=== PATIENT | male | born 1950 | race Asian ===

== ENCOUNTER 2016-05-25 17:40 | Inpatient (IN) | payer MEDICARE, OTHER ==
[~2016-05-25] VITALS: Ht 167.6 cm; Wt 74.4 kg
[~2016-05-25 17:40] MED LIST: AMLODIPINE BES2.5 MG ORAL; ATENOLOL25 MG ORAL; DIOVAN80 MG ORAL
[2016-05-25 18:23] LABS: BASOPHILS % (AUTO) 1.1 % (0.0-2.0); EOSINOPHILS % (AUTO) 0.8 % (0.0-3.0); LYMPHOCYTES % (AUTO) 23.8 % (20.0-45.0); MEAN CORPUSCULAR HEMOGLOBIN 28.8 PG (27.0-31.0); MEAN CORPUSCULAR HGB CONC 31.4 G/DL (32.0-36.0); MEAN CORPUSCULAR VOLUME 92 FL (80-99); MEAN PLATELET VOLUME 7.7 FL (6.5-10.1); MONOCYTES % (AUTO) 9.5 % (1.0-10.0); NEUTROPHILS % (AUTO) 64.8 % (45.0-75.0); PLATELET COUNT 291 K/UL (150-450); RED BLOOD COUNT 3.95 M/UL (4.70-6.10); RED CELL DISTRIBUTION WIDTH 11.6 % (11.6-14.8)
[2016-05-25 18:40] LABS: ALBUMIN/GLOBULIN RATIO 1.2 (1.0-2.7); CALCIUM 8.7 mg/dL (8.6-10.2); CREATININE 1.8 mg/dL (0.7-1.2); GLOMERULAR FILTRATION RATE 37.8 mL/min (>60); POTASSIUM 3.1 mEQ/L (3.4-4.9); TOTAL PROTEIN 6.7 g/dL (6.6-8.7)
[2016-05-25 18:45] LABS: TROPONIN I 1.03 ng/mL (<=0.30)
[2016-05-25 18:50] LABS: CKMB 2.1 ng/mL (< 6.7)
[2016-05-25 19:23] VITALS: BP 116/77
[2016-05-25] MEDS ORDERED: Heparin 25,000u/D5W 500ml 500 ML IV SCH ×3 (19:30→22:00)
[2016-05-25] MEDS ORDERED: Heparin 5000 units/ml inj IV ONE (19:30)
--- NOTE | 2016-05-25 19:36 | Emergency Room Report ---
History of Present Illness General Chief Complaint: Chest Pain Source: Patient, EMS Present Illness HPI 65 YOM with substernal 8/10 chest pain, non -radiating without nausea/vomiting/ diaphoresis. Occurred at rest. Was given SL nitro, ASA by EMS with resolution of pain. No previous AMI or CVA. Allergies: Coded Allergies: No Known Allergies (Unverified , 05/25/16) Patient History Past Medical History: DM, HTN, other - HLD Past Surgical History: none Pertinent Family History: none Social History: Denies: alcohol use, drug use, smoking Immunizations: UTD Reviewed Nursing Documentation: PMH: Agreed, PSxH: Agreed Nursing Documentation-PMH Hx Hypertension: Yes Hx Diabetes: Yes Review of Systems All Other Systems: negative except mentioned in HPI Physical Exam Vital Signs Date Time Temp Pulse Resp B/P Pulse Ox O2 Delivery O2 Flow Rate FiO2 05/25/16 17:36 85 18 127/86 98 Room Air 05/25/16 19:23 97.8 Sp02 EP Interpretation: reviewed, normal General Appearance: normal inspection, well appearing, no apparent distress, alert, GCS 15, non-toxic Head: normocephalic, atraumatic Eyes: bilateral eye EOMI, bilateral eye PERRL ENT: normal ENT inspection, hearing grossly normal, normal voice Neck: normal inspection, full range of motion, supple, no bony tend Respiratory: normal inspection, lungs clear, normal breath sounds, no respiratory distress, no retraction, no wheezing Cardiovascular #1: regular rate, rhythm, no edema Gastrointestinal: normal inspection, normal bowel sounds, non tender, soft, no guarding, no hernia Genitourinary: no CVA tenderness Musculoskeletal: normal inspection, back normal, normal range of motion, Tony' s Sign negative Neurologic: normal inspection, alert, oriented x3, responsive, patient accounts manager III-XII nml as tested, motor strength/tone normal, speech normal Psychiatric: normal inspection, judgement/insight normal, mood/affect normal Skin: normal inspection, normal color, no rash Medical Decision Making Medicare Attestation I Evelyn Zurita MD hereby attest that the medical record entry for date of service, 02/29/16 accurately reflects signatures/notations that I made in my capacity as MD when I treated/diagnosed the above listed Medicare beneficiary. I attest that this information is true, accurate and complete to the best of my knowledge. I understand that any falsification, omission, or concealment of material fact may subject me to administrative, civil, or criminal liability. This patient warrants hospital admission for extreme of age and has a condition that cannot be treated as outpatient. Diagnostic Impression: Primary Impression: NSTEMI (non-ST elevated myocardial infarction) Additional Impression: Chest pain Qualified Codes: R07.9 - Chest pain, unspecified ER Course ECG ST depressions in V-6, 2,3, AVF. Elevated troponin 1 CXR no widened mediastinum, PTX Called [facility] for possible transfer/Cardiology and they wouldnt accept because food stand manager said "He's not having a STEMI, consult your willower." Spoke to Dr Romo, strongly recommends transfer to tin can laborer. Recommended Heparin, Statin, beta-divine, full dose ASA, which were given in ED [facility] transfer center contacted at 730pm - pending response but was alerted they have no beds. Endorsed to Dr Polk at 828pm for ICU admission for NSTEMI patient remains asymptomatic in ED EKG Diagnostic Results Rate: normal Rhythm: NSR ST Segments: other - ST depressions in ifnerior and lateral leads ASA given to the pt in ED: Yes Rhythm Strip Diag. Results EP Interpretation: yes Rate: 80 Rhythm: other - LVH Chest X-Ray Diagnostic Results EP Interpretation: Yes Findings: no consolidation, no effusion, no pneumothorax, no acute cardiopulmonary disease Number of Views: 1 Last Vital Signs Date Time Temp Pulse Resp B/P Pulse Ox O2 Delivery O2 Flow Rate FiO2 05/25/16 19:23 97.8 74 21 116/77 99 Room Air Status: improved Disposition: ADMITTED INPATIENT Condition: Critical Referrals: NON PHYSICIAN (PCP) EVELYN ZURITA M.D. May 25, 2016 19:36
[2016-05-25] MEDS ORDERED: Metoprolol Tartrate 12.5mg TAB ORAL ONE (19:45)
[2016-05-25] MEDS ORDERED: Aspirin Baby 81mg ORAL ONE (19:45)
[2016-05-25 21:00] VITALS: BP 116/77
[2016-05-25 21:18] VITALS: BP 120/68
[2016-05-25 21:25] VITALS: BP 120/68
[2016-05-25 22:00] VITALS: BP 115/65
[2016-05-25] MEDS ORDERED: Enalaprilat 2.5mg/2ml Inj IV PRN (22:00)
[2016-05-25] MEDS ORDERED: Ketorolac 30mg Inj IV PRN (22:00)
[2016-05-25] MEDS ORDERED: Diltiazem 25mg/5ml IV PRN (22:00)
[2016-05-25] MEDS ORDERED: DuoNeb 0.5-3(2.5)mg/3ml neb HHN PRN (22:00)
[2016-05-25] MEDS ORDERED: Miralax 17gm pkt ORAL PRN (22:00)
[2016-05-25 23:00] VITALS: BP 111/65
[2016-05-25 23:47] LABS: APPEARANCE,URINE CLEAR; KETONES,URINE NEGATIVE (NEGATIVE); LEUKOCYTE ESTERASE ,URINE NEGATIVE (NEGATIVE); NITRITE,URINE NEGATIVE (NEGATIVE); PH,URINE 6 (4.5-8.0); PROTEIN,URINE 2+ (NEGATIVE); UROBILINOGEN,URINE NORMAL MG/DL (0.0-1.0)
[2016-05-25 23:53] LABS: BACTERIA,URINE FEW /HPF; RBC,URINE 0-2 /HPF (0 - 0); WBC,URINE 0 /HPF (0 - 0)
[2016-05-25] MEDS: Morphine Sulfate 2mg/ml Inj IVP PRN (23:53)
[2016-05-25] MEDS: Nitroglycerin Subl 0.4mg tab (Bottle Of 25) SL PRN (23:54)
[2016-05-26] VITALS (14 sets, daily range): BP systolic 93–124; BP diastolic 54–85
[2016-05-26 02:20] LABS: BASOPHILS % (AUTO) 0.9 % (0.0-2.0); EOSINOPHILS % (AUTO) 0.3 % (0.0-3.0); LYMPHOCYTES % (AUTO) 16.6 % (20.0-45.0); MEAN CORPUSCULAR HEMOGLOBIN 29.3 PG (27.0-31.0); MEAN CORPUSCULAR HGB CONC 33.1 G/DL (32.0-36.0); MEAN CORPUSCULAR VOLUME 88 FL (80-99); MEAN PLATELET VOLUME 8.1 FL (6.5-10.1); MONOCYTES % (AUTO) 7.5 % (1.0-10.0); NEUTROPHILS % (AUTO) 74.7 % (45.0-75.0); PLATELET COUNT 313 K/UL (150-450); RED BLOOD COUNT 4.11 M/UL (4.70-6.10); RED CELL DISTRIBUTION WIDTH 11.9 % (11.6-14.8); WHITE BLOOD COUNT 13.3 K/UL (4.8-10.8)
[2016-05-26 02:34] LABS: INR 1.1 (0.9-1.1)
[2016-05-26 02:41] LABS: ALANINE AMINOTRANSFERASE 20 U/L (3-41); ALBUMIN/GLOBULIN RATIO 1.2 (1.0-2.7); ANION GAP 16 (5-15); ASPARTATE AMINO TRANSFERASE 28 U/L (5-40); CALCIUM 8.4 mg/dL (8.6-10.2); CARBON DIOXIDE 22 mEQ/L (20-30); CHLORIDE 101 mEQ/L (98-107); CHOLESTEROL 160 mg/dL (< 200); CHOLESTEROL/HDL RATIO 4.3 (3.3-4.4); CREATININE 1.8 mg/dL (0.7-1.2); GLOMERULAR FILTRATION RATE 37.8 mL/min (>60); HEMOLYSIS 3; LDL CHOLESTEROL (CALC.) 89 mg/dL (60-99); MAGNESIUM 1.8 mg/dL (1.7-2.5); PHOSPHORUS 3.8 mg/dL (2.5-4.8); POTASSIUM 3.3 mEQ/L (3.4-4.9); SODIUM 139 mEQ/L (135-145); TOTAL PROTEIN 6.2 g/dL (6.6-8.7); URIC ACID 6.8 mg/dL (3.0-7.5)
[2016-05-26] MEDS ORDERED: Heparin 5000 units/ml inj IV ONE ×2 (03:00→11:00)
[2016-05-26] MEDS: Heparin 25,000u/D5W 500ml 500 ML IV SCH ×2 (03:08→11:07)
[2016-05-26 03:35] LABS: TROPONIN I 1.48 ng/mL (<=0.30)
[2016-05-26] MEDS: Nitroglycerin 2% oint pkt TOPIC SCH ×2 (06:02→12:01)
--- NOTE | 2016-05-26 07:06 | Cardiology Progress Note ---
Assessment/Plan Assessment/Plan nstemi know 3 v cad (declined cabg 3 year ago) dm htn hyperlipidmiia renal insuf (chronic ) hemorrids with bleeding afew week ago hypokalemia i was called agin by staff re trop ekg reviwed some improvement in st but still present iv heparin statin ecotirn bedrest ntp prn sl ntg bb echo serial enzyme needs to be transferred to cath facility for higer level of care echo Subjective Cardiovascular: Denies: chest pain - did have soen mearlier biut no now , irregular heart rate, lightheadedness Respiratory: Denies: shortness of breath Gastrointestinal/Abdominal: Denies: abdominal pain Genitourinary: Denies: burning Objective Last 24 Hour Vital Signs Date Time Temp Pulse Resp B/P Pulse Ox O2 Delivery O2 Flow Rate FiO2 05/26/16 06:02 107/70 05/26/16 06:00 71 20 107/70 98 Nasal Cannula 4.0 05/26/16 05:00 58 13 93/54 90 Nasal Cannula 4.0 05/26/16 04:00 97.8 66 18 108/66 94 Nasal Cannula 4.0 05/26/16 04:00 66 05/26/16 03:00 71 17 103/65 92 Nasal Cannula 4.0 05/26/16 02:00 67 19 102/63 92 Nasal Cannula 4.0 05/26/16 01:00 65 17 102/61 92 Nasal Cannula 4.0 05/26/16 00:42 97.7 05/26/16 00:34 20 95 Nasal Cannula 2.0 05/26/16 00:00 97.7 70 18 108/67 94 Nasal Cannula 4.0 05/26/16 00:00 70 05/25/16 23:54 111/65 05/25/16 23:45 99 Nasal Cannula 2.0 28 05/25/16 23:45 Nasal Cannula 2.0 28 05/25/16 23:45 73 16 Nasal Cannula 2.0 28 05/25/16 23:36 97.5 05/25/16 23:00 77 21 111/65 96 Nasal Cannula 2.0 05/25/16 22:00 97.5 77 23 115/65 95 Nasal Cannula 2.0 05/25/16 21:25 97.7 74 20 120/68 99 Room Air 05/25/16 21:23 97.7 74 20 120/68 99 Room Air 05/25/16 21:19 74 20 Room Air 05/25/16 21:18 97.7 74 20 120/68 99 Room Air 05/25/16 21:08 77 122/68 05/25/16 21:00 74 05/25/16 21:00 97.8 74 21 116/77 99 Room Air 05/25/16 19:23 97.8 74 21 116/77 99 Room Air 05/25/16 17:36 85 18 127/86 98 Room Air General Appearance: no apparent distress, alert Neck: no JVD Cardiovascular: normal rate, regular rhythm Respiratory/Chest: lungs clear, normal breath sounds Abdomen: normal bowel sounds, non tender, soft Extremities: no swelling Intake and Output 05/25/16 05/26/16 19:00 07:00 Intake Total 497.584 ml Output Total 600 ml Balance -102.416 ml Intake Oral 300 ml IV Total 197.584 ml Output Urine Total 600 ml # Voids 2 Laboratory Tests Test 05/25/16 18:00 05/25/16 18:06 05/25/16 22:20 05/25/16 22:22 Activated Partial Thromboplast Time 24 SEC (23-33) White Blood Count 9.0 K/UL (4.8-10.8) Red Blood Count 3.95 M/UL (4.70-6.10) L Hemoglobin 11.4 G/DL (14.2-18.0) L Hematocrit 36.2 % (42.0-52.0) L Mean Corpuscular Volume 92 FL (80-99) Mean Corpuscular Hemoglobin 28.8 PG (27.0-31.0) Mean Corpuscular Hemoglobin Concent 31.4 G/DL (32.0-36.0) L Red Cell Distribution Width 11.6 % (11.6-14.8) Platelet Count 291 K/UL (150-450) Mean Platelet Volume 7.7 FL (6.5-10.1) Neutrophils (%) (Auto) 64.8 % (45.0-75.0) Lymphocytes (%) (Auto) 23.8 % (20.0-45.0) Monocytes (%) (Auto) 9.5 % (1.0-10.0) Eosinophils (%) (Auto) 0.8 % (0.0-3.0) Basophils (%) (Auto) 1.1 % (0.0-2.0) Sodium Level 139 mEQ/L (135-145) Potassium Level 3.1 mEQ/L (3.4-4.9) L Chloride Level 99 mEQ/L (98-107) Carbon Dioxide Level 22 mEQ/L (20-30) Anion Gap 18 (5-15) H Blood Urea Nitrogen 28 mg/dL (7-23) H Creatinine 1.8 mg/dL (0.7-1.2) H Estimat Glomerular Filtration Rate 37.8 mL/min (>60) Glucose Level 168 mg/dL (74-106) H Calcium Level 8.7 mg/dL (8.6-10.2) Total Bilirubin 0.3 mg/dL (0.0-1.2) Aspartate Amino Transf (AST/SGOT) 23 U/L (5-40) Alanine Aminotransferase (ALT/SGPT) 21 U/L (3-41) Alkaline Phosphatase 36 U/L (40-129) L Total Creatine Kinase 79 U/L (38-174) Creatine Kinase MB 2.1 ng/mL (< 6.7) Creatine Kinase MB Relative Index 2.6 Troponin I 1.03 ng/mL (<=0.30) *H Total Protein 6.7 g/dL (6.6-8.7) Albumin 3.7 g/dL (3.5-5.2) Globulin 3.0 g/dL Albumin/Globulin Ratio 1.2 (1.0-2.7) Urine Random Sodium 102 mmol/L Urine Random Chloride 94 mmol/L Urine Potassium Timed 16 mmol/L Urine Color Pale yellow Urine Appearance Clear Urine pH 6 (4.5-8.0) Urine Specific [place] 1.010 (1.005-1.035) Urine Protein 2+ (NEGATIVE) H Urine Glucose (UA) Negative (NEGATIVE) Urine Ketones Negative (NEGATIVE) Urine Occult Blood Negative (NEGATIVE) Urine Nitrite Negative (NEGATIVE) Urine Bilirubin Negative (NEGATIVE) Urine Urobilinogen Normal MG/DL (0.0-1.0) Urine Leukocyte Esterase Negative (NEGATIVE) Urine RBC 0-2 /HPF (0 - 0) H Urine WBC 0 /HPF (0 - 0) Urine Squamous Epithelial Cells None /LPF (NONE/OCC) Urine Bacteria Few /HPF (NONE) Urine Eosinophils None seen Test 05/26/16 01:47 White Blood Count 13.3 K/UL (4.8-10.8) H Red Blood Count 4.11 M/UL (4.70-6.10) L Hemoglobin 12.0 G/DL (14.2-18.0) L Hematocrit 36.3 % (42.0-52.0) L Mean Corpuscular Volume 88 FL (80-99) Mean Corpuscular Hemoglobin 29.3 PG (27.0-31.0) Mean Corpuscular Hemoglobin Concent 33.1 G/DL (32.0-36.0) Red Cell Distribution Width 11.9 % (11.6-14.8) Platelet Count 313 K/UL (150-450) Mean Platelet Volume 8.1 FL (6.5-10.1) Neutrophils (%) (Auto) 74.7 % (45.0-75.0) Lymphocytes (%) (Auto) 16.6 % (20.0-45.0) L Monocytes (%) (Auto) 7.5 % (1.0-10.0) Eosinophils (%) (Auto) 0.3 % (0.0-3.0) Basophils (%) (Auto) 0.9 % (0.0-2.0) Prothrombin Time 11.0 SEC (9.30-11.50) Prothromb Time International Ratio 1.1 (0.9-1.1) Activated Partial Thromboplast Time 38 SEC (23-33) H Sodium Level 139 mEQ/L (135-145) Potassium Level 3.3 mEQ/L (3.4-4.9) L Chloride Level 101 mEQ/L (98-107) Carbon Dioxide Level 22 mEQ/L (20-30) Anion Gap 16 (5-15) H Blood Urea Nitrogen 29 mg/dL (7-23) H Creatinine 1.8 mg/dL (0.7-1.2) H Estimat Glomerular Filtration Rate 37.8 mL/min (>60) Glucose Level 140 mg/dL (74-106) H Uric Acid 6.8 mg/dL (3.0-7.5) Calcium Level 8.4 mg/dL (8.6-10.2) L Phosphorus Level 3.8 mg/dL (2.5-4.8) Magnesium Level 1.8 mg/dL (1.7-2.5) Total Bilirubin 0.4 mg/dL (0.0-1.2) Aspartate Amino Transf (AST/SGOT) 28 U/L (5-40) Alanine Aminotransferase (ALT/SGPT) 20 U/L (3-41) Alkaline Phosphatase 31 U/L (40-129) L Total Creatine Kinase 155 U/L (38-174) Troponin I 1.48 ng/mL (<=0.30) *H C-Reactive Protein, Quantitative < 0.3 mg/dL (< 0.5) Total Protein 6.2 g/dL (6.6-8.7) L Albumin 3.4 g/dL (3.5-5.2) L Globulin 2.8 g/dL Albumin/Globulin Ratio 1.2 (1.0-2.7) Triglycerides Level 172 mg/dL (< 150) H Cholesterol Level 160 mg/dL (< 200) LDL Cholesterol 89 mg/dL (60-99) HDL Cholesterol 37 mg/dL (> 60) Cholesterol/HDL Ratio 4.3 (3.3-4.4) Thyroid Stimulating Hormone (TSH) 4.120 uIU/mL (0.300-4.500) ДМИТРИЙ TAYLOR 2, 2017 07:06
[2016-05-26] MEDS: Nitroglycerin Subl 0.4mg tab (Bottle Of 25) SL PRN ×2 (08:14→11:52)
[2016-05-26] MEDS ORDERED: Aspirin Baby 81mg ORAL SCH (09:00)
[2016-05-26] MEDS ORDERED: Atenolol 25mg tab ORAL SCH (09:00)
--- NOTE | 2016-05-26 09:58 | History and Physical ---
History of Present Illness General Date patient seen: May 26, 2016 Time patient seen: 09:58 Reason for Hospitalization: Chest Pain Present Illness HPI 65yo male with pmh of CAD (known 3vCAD but refused CABG in past), DM2, HTN, HLD , CKD who presented with substernal 8/10 chest pain, non -radiating without nausea/vomiting/diaphoresis. Occurred at rest. Was given SL nitro, ASA by EMS with improvement of pain. In ED, pt found to have NSTEMI w/ elevated troponin to 1.03. ED physician spoke to cardiology, Dr Romo, strongly recommends transfer to sugar laboratory assistant. Heparin gtt started, as well as statin, beta divine. [facility] transfer center contacted at 730pm - pending response but was alerted they have no beds.Pt then admitted to ICU. Allergies: Coded Allergies: No Known Allergies (Unverified , 05/25/16) Medication History Scheduled Amlodipine Besylate* (Amlodipine Besylate*), 2.5 MG ORAL DAILY, (Reported) Atenolol* (Tenormin*), 25 MG ORAL DAILY, (Reported) Valsartan (Diovan), 80 MG ORAL DAILY, (Reported) Patient History History Provided By: Patient, Family Member, EMS Healthcare decision maker shea Duong Resuscitation status Full Code Advanced Directive on File No Past Medical/Surgical History Past Medical/Surgical History: (1) CAD (coronary artery disease) (2) HTN (hypertension) (3) HLD (hyperlipidemia) (4) CKD (chronic kidney disease) (5) DM2 (diabetes mellitus, type 2) Family History Family History: Patient reports no known family medical history. Social History Social History: (1) No significant social history Review of Systems ROS Narrative CONSTITUTIONAL: No weight loss, fever, chills, weakness or fatigue. HEENT: Eyes: No visual loss, blurred vision, double vision or yellow sclerae. Ears, Nose, Throat: No hearing loss, sneezing, congestion, runny nose or sore throat. SKIN: No rash or itching. CARDIOVASCULAR: +chest pain, chest pressure or chest discomfort. No palpitations or edema. RESPIRATORY: +shortness of breath, no cough or sputum. GASTROINTESTINAL: No anorexia, nausea, vomiting or diarrhea. No abdominal pain or blood. NEUROLOGICAL: No headache, dizziness, syncope, paralysis, ataxia, numbness or tingling in the extremities. No change in bowel or bladder control. MUSCULOSKELETAL: No muscle, back pain, joint pain or stiffness. HEMATOLOGIC: No anemia, bleeding or bruising. LYMPHATICS: No enlarged nodes. No history of splenectomy. PSYCHIATRIC: No history of depression or anxiety. ENDOCRINOLOGIC: No reports of sweating, cold or heat intolerance. No polyuria or polydipsia. ALLERGIES: No history of asthma, hives, eczema or rhinitis. Physical Exam Physical Exam Narrative General: alert, cooperative, no distress, appears stated age Head: normocephalic, without obvious abnormality, atraumatic Eyes: conjunctivae/corneas clear. PERRL, EOM's intact Throat: lips, mucosa, and tongue normal. MMM Neck: supple, symmetrical, trachea midline, and no JVD Lungs: clear to auscultation bilaterally Heart: regular rate and rhythm, S1, S2 normal, no murmur, click, rub or gallop Abdomen: soft, non-tender, non-distended, bowel sounds normal; no masses or organomegaly Extremities: extremities normal, atraumatic, no cyanosis or edema Pulses: 2+ and symmetric Skin: skin color, texture, turgor normal; no rashes or lesions Neurologic: grossly normal, no focal deficits Last 24 Hour Vital Signs Date Time Temp Pulse Resp B/P Pulse Ox O2 Delivery O2 Flow Rate FiO2 05/26/16 09:33 96 124/75 05/26/16 09:00 97.8 102 25 124/75 93 Nasal Cannula 4.0 05/26/16 08:14 113/73 05/26/16 08:06 104 25 Nasal Cannula 3.0 32 05/26/16 08:06 104 25 95 Nasal Cannula 3.0 32 05/26/16 08:06 36 05/26/16 08:00 96 22 113/73 92 Nasal Cannula 4.0 05/26/16 07:00 82 15 114/67 95 Nasal Cannula 4.0 05/26/16 06:55 79 16 Nasal Cannula 2.0 28 05/26/16 06:55 Nasal Cannula 2.0 28 05/26/16 06:55 94 Nasal Cannula 2.0 28 05/26/16 06:02 107/70 05/26/16 06:00 71 20 107/70 98 Nasal Cannula 4.0 05/26/16 05:00 58 13 93/54 90 Nasal Cannula 4.0 05/26/16 04:00 97.8 66 18 108/66 94 Nasal Cannula 4.0 05/26/16 04:00 66 05/26/16 03:00 71 17 103/65 92 Nasal Cannula 4.0 05/26/16 02:00 67 19 102/63 92 Nasal Cannula 4.0 05/26/16 01:00 65 17 102/61 92 Nasal Cannula 4.0 05/26/16 00:42 97.7 05/26/16 00:34 20 95 Nasal Cannula 2.0 05/26/16 00:00 97.7 70 18 108/67 94 Nasal Cannula 4.0 05/26/16 00:00 70 05/25/16 23:54 111/65 05/25/16 23:45 99 Nasal Cannula 2.0 28 05/25/16 23:45 Nasal Cannula 2.0 28 05/25/16 23:45 73 16 Nasal Cannula 2.0 28 05/25/16 23:36 97.5 05/25/16 23:00 77 21 111/65 96 Nasal Cannula 2.0 05/25/16 22:00 97.5 77 23 115/65 95 Nasal Cannula 2.0 05/25/16 21:25 97.7 74 20 120/68 99 Room Air 05/25/16 21:23 97.7 74 20 120/68 99 Room Air 05/25/16 21:19 74 20 Room Air 05/25/16 21:18 97.7 74 20 120/68 99 Room Air 05/25/16 21:08 77 122/68 05/25/16 21:00 74 05/25/16 21:00 97.8 74 21 116/77 99 Room Air 05/25/16 19:23 97.8 74 21 116/77 99 Room Air 05/25/16 17:36 85 18 127/86 98 Room Air Intake and Output 05/25/16 05/26/16 19:00 07:00 Intake Total 521.534 ml Output Total 600 ml Balance -78.466 ml Intake Oral 300 ml IV Total 221.534 ml Output Urine Total 600 ml # Voids 2 Laboratory Tests Test 05/25/16 18:00 05/25/16 18:06 05/25/16 22:20 05/25/16 22:22 Activated Partial Thromboplast Time 24 SEC (23-33) White Blood Count 9.0 K/UL (4.8-10.8) Red Blood Count 3.95 M/UL (4.70-6.10) L Hemoglobin 11.4 G/DL (14.2-18.0) L Hematocrit 36.2 % (42.0-52.0) L Mean Corpuscular Volume 92 FL (80-99) Mean Corpuscular Hemoglobin 28.8 PG (27.0-31.0) Mean Corpuscular Hemoglobin Concent 31.4 G/DL (32.0-36.0) L Red Cell Distribution Width 11.6 % (11.6-14.8) Platelet Count 291 K/UL (150-450) Mean Platelet Volume 7.7 FL (6.5-10.1) Neutrophils (%) (Auto) 64.8 % (45.0-75.0) Lymphocytes (%) (Auto) 23.8 % (20.0-45.0) Monocytes (%) (Auto) 9.5 % (1.0-10.0) Eosinophils (%) (Auto) 0.8 % (0.0-3.0) Basophils (%) (Auto) 1.1 % (0.0-2.0) Sodium Level 139 mEQ/L (135-145) Potassium Level 3.1 mEQ/L (3.4-4.9) L Chloride Level 99 mEQ/L (98-107) Carbon Dioxide Level 22 mEQ/L (20-30) Anion Gap 18 (5-15) H Blood Urea Nitrogen 28 mg/dL (7-23) H Creatinine 1.8 mg/dL (0.7-1.2) H Estimat Glomerular Filtration Rate 37.8 mL/min (>60) Glucose Level 168 mg/dL (74-106) H Calcium Level 8.7 mg/dL (8.6-10.2) Total Bilirubin 0.3 mg/dL (0.0-1.2) Aspartate Amino Transf (AST/SGOT) 23 U/L (5-40) Alanine Aminotransferase (ALT/SGPT) 21 U/L (3-41) Alkaline Phosphatase 36 U/L (40-129) L Total Creatine Kinase 79 U/L (38-174) Creatine Kinase MB 2.1 ng/mL (< 6.7) Creatine Kinase MB Relative Index 2.6 Troponin I 1.03 ng/mL (<=0.30) *H Total Protein 6.7 g/dL (6.6-8.7) Albumin 3.7 g/dL (3.5-5.2) Globulin 3.0 g/dL Albumin/Globulin Ratio 1.2 (1.0-2.7) Urine Random Sodium 102 mmol/L Urine Random Chloride 94 mmol/L Urine Potassium Timed 16 mmol/L Urine Color Pale yellow Urine Appearance Clear Urine pH 6 (4.5-8.0) Urine Specific [place] 1.010 (1.005-1.035) Urine Protein 2+ (NEGATIVE) H Urine Glucose (UA) Negative (NEGATIVE) Urine Ketones Negative (NEGATIVE) Urine Occult Blood Negative (NEGATIVE) Urine Nitrite Negative (NEGATIVE) Urine Bilirubin Negative (NEGATIVE) Urine Urobilinogen Normal MG/DL (0.0-1.0) Urine Leukocyte Esterase Negative (NEGATIVE) Urine RBC 0-2 /HPF (0 - 0) H Urine WBC 0 /HPF (0 - 0) Urine Squamous Epithelial Cells None /LPF (NONE/OCC) Urine Bacteria Few /HPF (NONE) Urine Eosinophils None seen Test 05/26/16 01:47 05/26/16 09:05 White Blood Count 13.3 K/UL (4.8-10.8) H Red Blood Count 4.11 M/UL (4.70-6.10) L Hemoglobin 12.0 G/DL (14.2-18.0) L Hematocrit 36.3 % (42.0-52.0) L Mean Corpuscular Volume 88 FL (80-99) Mean Corpuscular Hemoglobin 29.3 PG (27.0-31.0) Mean Corpuscular Hemoglobin Concent 33.1 G/DL (32.0-36.0) Red Cell Distribution Width 11.9 % (11.6-14.8) Platelet Count 313 K/UL (150-450) Mean Platelet Volume 8.1 FL (6.5-10.1) Neutrophils (%) (Auto) 74.7 % (45.0-75.0) Lymphocytes (%) (Auto) 16.6 % (20.0-45.0) L Monocytes (%) (Auto) 7.5 % (1.0-10.0) Eosinophils (%) (Auto) 0.3 % (0.0-3.0) Basophils (%) (Auto) 0.9 % (0.0-2.0) Prothrombin Time 11.0 SEC (9.30-11.50) Prothromb Time International Ratio 1.1 (0.9-1.1) Activated Partial Thromboplast Time 38 SEC (23-33) H Pending Sodium Level 139 mEQ/L (135-145) Potassium Level 3.3 mEQ/L (3.4-4.9) L Chloride Level 101 mEQ/L (98-107) Carbon Dioxide Level 22 mEQ/L (20-30) Anion Gap 16 (5-15) H Blood Urea Nitrogen 29 mg/dL (7-23) H Creatinine 1.8 mg/dL (0.7-1.2) H Estimat Glomerular Filtration Rate 37.8 mL/min (>60) Glucose Level 140 mg/dL (74-106) H Uric Acid 6.8 mg/dL (3.0-7.5) Calcium Level 8.4 mg/dL (8.6-10.2) L Phosphorus Level 3.8 mg/dL (2.5-4.8) Magnesium Level 1.8 mg/dL (1.7-2.5) Total Bilirubin 0.4 mg/dL (0.0-1.2) Aspartate Amino Transf (AST/SGOT) 28 U/L (5-40) Alanine Aminotransferase (ALT/SGPT) 20 U/L (3-41) Alkaline Phosphatase 31 U/L (40-129) L Total Creatine Kinase 155 U/L (38-174) Troponin I 1.48 ng/mL (<=0.30) *H Pending C-Reactive Protein, Quantitative < 0.3 mg/dL (< 0.5) Total Protein 6.2 g/dL (6.6-8.7) L Albumin 3.4 g/dL (3.5-5.2) L Globulin 2.8 g/dL Albumin/Globulin Ratio 1.2 (1.0-2.7) Triglycerides Level 172 mg/dL (< 150) H Cholesterol Level 160 mg/dL (< 200) LDL Cholesterol 89 mg/dL (60-99) HDL Cholesterol 37 mg/dL (> 60) Cholesterol/HDL Ratio 4.3 (3.3-4.4) Thyroid Stimulating Hormone (TSH) 4.120 uIU/mL (0.300-4.500) Height (Feet): 5 Height (Inches): 6.00 Weight (Pounds): 164 Medications Current Medications Medications (Trade) Dose Ordered Sig/Adilia Route PRN Reason Start Time Stop Time Status Last Admin Dose Admin Acetaminophen (Tylenol) 650 mg Q4H PRN ORAL FEVER 05/25/16 22:00 06/24/16 21:59 Albuterol/ Ipratropium (DuoNeb 0.5-3(2.5)mg/3ml) 3 ml EVERY 4 HOURS PRN HHN Shortness of Breath 05/25/16 22:00 05/30/16 21:59 05/26/16 08:05 Aspirin (ASA) 162 mg DAILY ORAL 05/26/16 09:00 06/25/16 08:59 05/26/16 09:42 Atenolol (Tenormin) 25 mg DAILY ORAL 05/26/16 09:00 06/25/16 08:59 05/26/16 09:33 Atorvastatin Calcium (Lipitor) 80 mg BEDTIME ORAL 05/26/16 21:00 06/25/16 20:59 Diltiazem HCl 10 mg 10 mg EVERY HOUR PRN IV heart rate more than 120, 05/25/16 22:00 06/24/16 21:59 Enalaprilat (Vasotec) 2.5 mg EVERY 6 HOURS PRN IV sbp more than 160 05/25/16 22:00 06/24/16 21:59 Heparin Sodium/ Dextrose (Heparin) 500 ml @ 23.95 mls/ hr adjust per protocol IV 05/26/16 03:00 06/25/16 02:59 05/26/16 03:08 Morphine Sulfate (Morphine Sulfate) 2 mg EVERY 4 HOURS PRN IVP severe Pain (Pain Scale 7-10) 05/25/16 22:00 06/01/16 21:59 05/25/16 23:53 Nitroglycerin (Nitro-Bid) 0.5 inch EVERY 6 HOURS TOPIC 05/26/16 06:00 06/25/16 05:59 05/26/16 06:02 Nitroglycerin (Ntg) 0.4 mg Every 5 Minutes PRN SL Prn Chest Pain 05/25/16 22:00 06/24/16 21:59 05/26/16 08:14 Ondansetron HCl (Zofran) 4 mg Q6H PRN IVP Nausea & Vomiting 05/25/16 22:00 06/24/16 21:59 Pantoprazole (Protonix) 40 mg DAILY ORAL 05/26/16 09:00 06/25/16 08:59 05/26/16 09:34 Polyethylene Glycol (Miralax) 17 gm DAILYPRN PRN ORAL Constipation 05/25/16 22:00 06/24/16 21:59 Temazepam (Restoril) 15 mg HSPRN PRN ORAL Insomnia 05/25/16 22:00 06/01/16 21:59 Assessment/Plan Problem List: (1) NSTEMI (non-ST elevated myocardial infarction) ICD Codes: I21.4 - Non-ST elevation (NSTEMI) myocardial infarction SNOMED: 17062287 (2) Acute respiratory failure with hypoxia ICD Codes: J96.01 - Acute respiratory failure with hypoxia SNOMED: 99952658, 602766844 (3) CAD (coronary artery disease) ICD Codes: I25.10 - Atherosclerotic heart disease of [place] coronary artery without angina pectoris SNOMED: 88484964 (4) HTN (hypertension) ICD Codes: I10 - Essential (primary) hypertension SNOMED: 65961010 (5) HLD (hyperlipidemia) ICD Codes: E78.5 - Hyperlipidemia, unspecified SNOMED: 47377226 (6) CKD (chronic kidney disease) ICD Codes: N18.9 - Chronic kidney disease, unspecified SNOMED: 663921858 (7) DM2 (diabetes mellitus, type 2) ICD Codes: E11.9 - Type 2 diabetes mellitus without complications SNOMED: 49098536 Status: stable Assessment/Plan Admit to ICU Cont ASA, statin, beta-divine, heparin gtt Appreciate cardiology rec's--pt needs to be transferred to higher level for cardiac cath Trend trop/EKG Bed rest Titrate O2 to sats>92% Nitro SL PRN Check TTE Consider workup for PE give hypoxia such as V/Q scan. Cannot do CTA given elevated Cr FULL CODE Arelis Ceballos M.D. May 26, 2016 09:58
[2016-05-26 10:08] LABS: TROPONIN I 1.45 ng/mL (<=0.30)
[2016-05-26] MEDS: Morphine Sulfate 2mg/ml Inj IVP PRN (11:00)
--- NOTE | 2016-05-26 12:01 | Pulmonolgy Critical Care Note ---
Critical Care - Asmt/Plan Problems: (1) NSTEMI (non-ST elevated myocardial infarction) (2) DM2 (diabetes mellitus, type 2) (3) HTN (hypertension) Respiratory: monitor respiratory rate, adjust FIO2, CXR Cardiac: continue to monitor HR/BP, other - for transfer to [facility] Renal: F/U I&O, keep IV fluid, check electrolytes Infectious Disease: check cultures Endocrine: monitor blood sugar, check TSH, check HgA1C Neurologic: PRN Morphine Notes Reviewed: training associate, renal Discussed with: nurses, consultants, case resolution specialistcosmetics counter manager - Objective Last 24 Hour Vital Signs Date Time Temp Pulse Resp B/P Pulse Ox O2 Delivery O2 Flow Rate FiO2 05/26/16 11:18 Venturi Mask 14.0 55 05/26/16 11:00 87 24 120/85 92 Venturi Mask 55.0 05/26/16 10:00 96 20 123/83 90 Venturi Mask 55.0 05/26/16 09:33 96 124/75 05/26/16 09:00 97.8 102 25 124/75 93 Nasal Cannula 4.0 05/26/16 08:16 104 26 96 Nasal Cannula 3.0 32 05/26/16 08:14 113/73 05/26/16 08:06 104 25 Nasal Cannula 3.0 32 05/26/16 08:06 104 25 95 Nasal Cannula 3.0 32 05/26/16 08:06 36 05/26/16 08:00 96 22 113/73 92 Nasal Cannula 4.0 05/26/16 07:00 82 15 114/67 95 Nasal Cannula 4.0 05/26/16 06:55 79 16 Nasal Cannula 2.0 28 05/26/16 06:55 Nasal Cannula 2.0 28 05/26/16 06:55 94 Nasal Cannula 2.0 28 05/26/16 06:02 107/70 05/26/16 06:00 71 20 107/70 98 Nasal Cannula 4.0 05/26/16 05:00 58 13 93/54 90 Nasal Cannula 4.0 05/26/16 04:00 97.8 66 18 108/66 94 Nasal Cannula 4.0 05/26/16 04:00 66 05/26/16 03:00 71 17 103/65 92 Nasal Cannula 4.0 05/26/16 02:00 67 19 102/63 92 Nasal Cannula 4.0 05/26/16 01:00 65 17 102/61 92 Nasal Cannula 4.0 05/26/16 00:42 97.7 05/26/16 00:34 20 95 Nasal Cannula 2.0 05/26/16 00:00 97.7 70 18 108/67 94 Nasal Cannula 4.0 05/26/16 00:00 70 05/25/16 23:54 111/65 05/25/16 23:45 99 Nasal Cannula 2.0 28 05/25/16 23:45 Nasal Cannula 2.0 28 05/25/16 23:45 73 16 Nasal Cannula 2.0 28 05/25/16 23:36 97.5 05/25/16 23:00 77 21 111/65 96 Nasal Cannula 2.0 05/25/16 22:00 97.5 77 23 115/65 95 Nasal Cannula 2.0 05/25/16 21:25 97.7 74 20 120/68 99 Room Air 05/25/16 21:23 97.7 74 20 120/68 99 Room Air 05/25/16 21:19 74 20 Room Air 05/25/16 21:18 97.7 74 20 120/68 99 Room Air 05/25/16 21:08 77 122/68 05/25/16 21:00 74 05/25/16 21:00 97.8 74 21 116/77 99 Room Air 05/25/16 19:23 97.8 74 21 116/77 99 Room Air 05/25/16 17:36 85 18 127/86 98 Room Air Status: awake Condition: critical HEENT: atraumatic, normocephalic Neck: full ROM Heart: HR/BP stable, regular Abdomen: soft, non-tender, feeding tube Extremities: no C/C/E Critical Care - Subjective FI02: 55 Sputum Amount: None I&O: Intake and Output 05/25/16 05/26/16 19:00 07:00 Intake Total 521.534 ml Output Total 600 ml Balance -78.466 ml Intake Oral 300 ml IV Total 221.534 ml Output Urine Total 600 ml # Voids 2 CXR: mild pulmonary edema Labs: Laboratory Tests Test 05/25/16 18:00 05/25/16 18:06 05/25/16 22:20 05/25/16 22:22 Activated Partial Thromboplast Time 24 SEC (23-33) White Blood Count 9.0 K/UL (4.8-10.8) Red Blood Count 3.95 M/UL (4.70-6.10) L Hemoglobin 11.4 G/DL (14.2-18.0) L Hematocrit 36.2 % (42.0-52.0) L Mean Corpuscular Volume 92 FL (80-99) Mean Corpuscular Hemoglobin 28.8 PG (27.0-31.0) Mean Corpuscular Hemoglobin Concent 31.4 G/DL (32.0-36.0) L Red Cell Distribution Width 11.6 % (11.6-14.8) Platelet Count 291 K/UL (150-450) Mean Platelet Volume 7.7 FL (6.5-10.1) Neutrophils (%) (Auto) 64.8 % (45.0-75.0) Lymphocytes (%) (Auto) 23.8 % (20.0-45.0) Monocytes (%) (Auto) 9.5 % (1.0-10.0) Eosinophils (%) (Auto) 0.8 % (0.0-3.0) Basophils (%) (Auto) 1.1 % (0.0-2.0) Sodium Level 139 mEQ/L (135-145) Potassium Level 3.1 mEQ/L (3.4-4.9) L Chloride Level 99 mEQ/L (98-107) Carbon Dioxide Level 22 mEQ/L (20-30) Anion Gap 18 (5-15) H Blood Urea Nitrogen 28 mg/dL (7-23) H Creatinine 1.8 mg/dL (0.7-1.2) H Estimat Glomerular Filtration Rate 37.8 mL/min (>60) Glucose Level 168 mg/dL (74-106) H Calcium Level 8.7 mg/dL (8.6-10.2) Total Bilirubin 0.3 mg/dL (0.0-1.2) Aspartate Amino Transf (AST/SGOT) 23 U/L (5-40) Alanine Aminotransferase (ALT/SGPT) 21 U/L (3-41) Alkaline Phosphatase 36 U/L (40-129) L Total Creatine Kinase 79 U/L (38-174) Creatine Kinase MB 2.1 ng/mL (< 6.7) Creatine Kinase MB Relative Index 2.6 Troponin I 1.03 ng/mL (<=0.30) *H Total Protein 6.7 g/dL (6.6-8.7) Albumin 3.7 g/dL (3.5-5.2) Globulin 3.0 g/dL Albumin/Globulin Ratio 1.2 (1.0-2.7) Urine Random Sodium 102 mmol/L Urine Random Chloride 94 mmol/L Urine Potassium Timed 16 mmol/L Urine Color Pale yellow Urine Appearance Clear Urine pH 6 (4.5-8.0) Urine Specific [place] 1.010 (1.005-1.035) Urine Protein 2+ (NEGATIVE) H Urine Glucose (UA) Negative (NEGATIVE) Urine Ketones Negative (NEGATIVE) Urine Occult Blood Negative (NEGATIVE) Urine Nitrite Negative (NEGATIVE) Urine Bilirubin Negative (NEGATIVE) Urine Urobilinogen Normal MG/DL (0.0-1.0) Urine Leukocyte Esterase Negative (NEGATIVE) Urine RBC 0-2 /HPF (0 - 0) H Urine WBC 0 /HPF (0 - 0) Urine Squamous Epithelial Cells None /LPF (NONE/OCC) Urine Bacteria Few /HPF (NONE) Urine Eosinophils None seen Test 05/26/16 01:47 05/26/16 09:05 White Blood Count 13.3 K/UL (4.8-10.8) H Red Blood Count 4.11 M/UL (4.70-6.10) L Hemoglobin 12.0 G/DL (14.2-18.0) L Hematocrit 36.3 % (42.0-52.0) L Mean Corpuscular Volume 88 FL (80-99) Mean Corpuscular Hemoglobin 29.3 PG (27.0-31.0) Mean Corpuscular Hemoglobin Concent 33.1 G/DL (32.0-36.0) Red Cell Distribution Width 11.9 % (11.6-14.8) Platelet Count 313 K/UL (150-450) Mean Platelet Volume 8.1 FL (6.5-10.1) Neutrophils (%) (Auto) 74.7 % (45.0-75.0) Lymphocytes (%) (Auto) 16.6 % (20.0-45.0) L Monocytes (%) (Auto) 7.5 % (1.0-10.0) Eosinophils (%) (Auto) 0.3 % (0.0-3.0) Basophils (%) (Auto) 0.9 % (0.0-2.0) Prothrombin Time 11.0 SEC (9.30-11.50) Prothromb Time International Ratio 1.1 (0.9-1.1) Activated Partial Thromboplast Time 38 SEC (23-33) H 63 SEC (23-33) H Sodium Level 139 mEQ/L (135-145) Potassium Level 3.3 mEQ/L (3.4-4.9) L Chloride Level 101 mEQ/L (98-107) Carbon Dioxide Level 22 mEQ/L (20-30) Anion Gap 16 (5-15) H Blood Urea Nitrogen 29 mg/dL (7-23) H Creatinine 1.8 mg/dL (0.7-1.2) H Estimat Glomerular Filtration Rate 37.8 mL/min (>60) Glucose Level 140 mg/dL (74-106) H Uric Acid 6.8 mg/dL (3.0-7.5) Calcium Level 8.4 mg/dL (8.6-10.2) L Phosphorus Level 3.8 mg/dL (2.5-4.8) Magnesium Level 1.8 mg/dL (1.7-2.5) Total Bilirubin 0.4 mg/dL (0.0-1.2) Aspartate Amino Transf (AST/SGOT) 28 U/L (5-40) Alanine Aminotransferase (ALT/SGPT) 20 U/L (3-41) Alkaline Phosphatase 31 U/L (40-129) L Total Creatine Kinase 155 U/L (38-174) Troponin I 1.48 ng/mL (<=0.30) *H 1.45 ng/mL (<=0.30) *H C-Reactive Protein, Quantitative < 0.3 mg/dL (< 0.5) Total Protein 6.2 g/dL (6.6-8.7) L Albumin 3.4 g/dL (3.5-5.2) L Globulin 2.8 g/dL Albumin/Globulin Ratio 1.2 (1.0-2.7) Triglycerides Level 172 mg/dL (< 150) H Cholesterol Level 160 mg/dL (< 200) LDL Cholesterol 89 mg/dL (60-99) HDL Cholesterol 37 mg/dL (> 60) Cholesterol/HDL Ratio 4.3 (3.3-4.4) Thyroid Stimulating Hormone (TSH) 4.120 uIU/mL (0.300-4.500) SYLVESTER ORTEZ May 26, 2016 12:01
--- NOTE | 2016-05-26 12:53 | Diagnostic Imaging Report ---
Indication: Chest Pain Comparison: None A single view chest radiograph was obtained. Findings: Pulmonary vascularity and interstitium are prominent. Heart size is prominent. Bones are osteopenic. Impression: CHF suspected.
--- NOTE | 2016-05-26 13:34 | Diagnostic Imaging Report ---
Indication: Dyspnea Comparison: 05/25/16 A single view chest radiograph was obtained. Findings: Vascular prominence and interstitial opacities are present within the lungs bilaterally with a central predominance. Heart size is normal. The bones are osteopenic. Impression: Worsening CHF
--- NOTE | 2016-05-26 17:40 | Consultation ---
DATE OF CONSULTATION: 05/25/2016 CRITICAL CARE CARDIOLOGY NOTE: CONSULTING PHYSICIAN: Del Causey M.D. ATTENDING PHYSICIAN: Darling Mason M.D. REFERRING PHYSICIAN: Dr. Marrero in the emergency room. REASON FOR REFERRAL: Myocardial infarction. HISTORY OF PRESENT ILLNESS: I was called by the emergency room physician about this patient who has had chest pain off and on all day today and presented with troponin of 1. He sent me the electrocardiogram which I reviewed. ST-segment depressions were noted in V5 and V6. He tried transferring the patient to [facility], but that was not accepted. The patient had been given some nitroglycerin in the emergency room with improvement in the chest pain. After my discussion with Dr. Marrero, we decided to put the patient on anticoagulation with heparin . The patient is on full dose of aspirin, although he had received some aspirin with the paramedics including nitroglycerin and we started the patient on some beta-blockers while trying to attempt to transfer. I did call [facility] myself and I did talk with them since the patient was not going to the cath laboratory. We had urgently or emergently the patient on transfer. I asked Dr. Marrero to try to transfer the patient to [facility]. Apparently, that attempt also failed. The patient was subsequently admitted to the hospital here at [facility] for further evaluation, continuation of beta-blockers and aspirin. PAST MEDICAL HISTORY: Positive for history of diabetes, high blood pressure, and high cholesterol. He apparently had cardiac cath some 3 years ago and was told that he needed bypass surgery, but he did not want to have that done. He has had chest pains off and on for approximately one month, but got really bad and frequent yesterday so he presented to the emergency room. He had some shortness of breath. He had some sweating at that time. He describes the pain as being hit in the chest. He usually sleeps flat but with the chest pain, he has had to sleep in a sitting position at times. ALLERGIES: He is not allergic to any medication. SOCIAL HISTORY: He used to smoke 20 years ago. Does not drink alcoholic beverages. REVIEW OF SYSTEMS: Gastrointestinal: He has had history of hemorrhoids and bleeding. He is supposed to have surgery some time later this month. Genitourinary: Negative. Pulmonary: Negative. Constitutional: Negative except for the fact that he was diaphoretic. PHYSICAL EXAMINATION: GENERAL: Shows to be elderly gentleman in no apparent respiratory distress. NECK: Supple. No jugular venous distention. LUNGS: Clear to auscultation and percussion. CARDIAC: Regular rate and rhythm. No heaves, thrills, gallops, or rubs noted. ABDOMEN: Soft and nontender. Positive bowel sounds. EXTREMITIES: There is no clubbing, cyanosis, or edema. NEUROLOGIC: He is awake, alert, and responsive. LABORATORY AND DIAGNOSTIC DATA: White count 9, hemoglobin 11.5, and platelet count of 291,000. Chemistries, sodium 139, potassium 3.1, chloride 99, bicarbonate of 18, BUN of 20, creatinine 1.8, glucose of 168. Liver function tests are normal. His troponin was 1.03. His EKG shows ST-segment depression of approximately 2 mm to 3 mm in leads V5 and V6 and some 1 mm in aVF with T-wave inversions being noted in as well. He has had a chest x-ray, which not sure of the results and his original PTT was 24 at the time of admission. ASSESSMENT: 1. Acute coronary syndrome/non-ST elevation myocardial infarction. 2. Diabetes. 3. Hypertension. 4. Hyperlipidemia. 5. Known 3-vessel coronary artery disease. As mentioned, critical care admission with IV heparin to be instituted, aspirin to be administered, and the attempts to transfer to a cath facility have been performed. The patient will be observed in intensive care unit. Further recommendations as become necessary. Del Causey M.D. DR: Kely JOB#: [id number] CC:
[2016-05-26] MEDS ORDERED: Atorvastatin 80mg tab ORAL SCH (21:00)
--- NOTE | 2016-05-27 13:14 | Cardiology Report ---
APPROVED REPORT EXAM: Two-dimensional and M-mode echocardiogram with Doppler and color Doppler. INDICATION Left Ventricular Function M-Mode DIMENSIONS IVSd1.0 (0.7-1.1cm)Left Atrium (MM)4.7 (1.6-4.0cm) LVDd5.5 (3.5-5.6cm)Aortic Root2.9 (2.0-3.7cm) PWd1.0 (0.7-1.1cm)Aortic Cusp Exc.1.0 (1.5-2.0cm) LVDs4.2 (2.5-4.0cm) PWs1.2 cm Technically difficult study due to poor acoustic windows. Global left ventricular hypokinesis. Left ventricular ejection fraction estimated to be 25-30 %. No evidence of ventricular hypertrophy. No evidence of pericardial fat or effusion. Mild left atrial enlargement. Right atrial and right ventricular chamber sizes are within normal limits. Mild focal aortic valve sclerosis with adequate cusp excursion. Mildly thickened mitral valve leaflets with normal excursion. Mild mitral annulus and aortic root calcification. Pulmonic valve not well visualized. Normal tricuspid valve structure. A color flow and spectral Doppler study was performed and revealed: No aortic regurgitation. Severe mitral regurgitation. Left Ventricular diastolic function could not be determined due to A-fib. Moderate tricuspid regurgitation. Tricuspid systolic velocities suggests peak right ventricular systolic pressure of 76 mmHg, consistent with severe pulmonary hypertension. Trace pulmonic regurgitation present.
--- NOTE | 2016-05-27 14:02 | Cardiology Report ---
APPROVED REPORT EKG Measurement Heart [id number] Normal sinus rhythm Possible Left atrial enlargement Left ventricular hypertrophy with repolarization abnormality Abnormal ECG
--- NOTE | 2016-06-10 13:30 | Discharge Summary ---
Discharge Summary Hospital Course Date of Admission May 25, 2016 at 18:48 Date of Discharge May 26, 2016 at 13:05 Admitting Diagnosis chest pain MARIANN Scott is a 65 year old male who was admitted on May 25, 2016 at 18:48 for Chest pain Hospital Course [id number] Discharge Discharge Disposition Patient was discharged to Acute Care Facility(02) Discharge Diagnoses: Kady Rm NP Jun 10, 2016 13:30
--- NOTE | 2016-06-10 23:38 | Discharge Summary 2 SIG ---
DATE OF ADMISSION: 05/25/2016 DATE OF DISCHARGE: 05/26/2016 CONSULTANTS: 1. Del Causey M.D. 2. Josseline Mullen M.D. BRIEF HOSPITAL COURSE: The patient is a 65-year-old male with past medical history of coronary artery disease with a known three-vessel coronary artery disease, but refused coronary artery bypass graft in the past, history of hypertension, diabetes, hyperlipidemia and chronic kidney disease. He presented with substernal chest pain that occurred at rest associated with diaphoresis. He was given nitroglycerin sublingual and aspirin by EMS with improvement of the pain. On evaluation at ED, he was found to have non-ST elevated myocardial infarction. Troponin level was elevated to 1. Dr. Causey was consulted and recommended need for transfer to the cath laboratory. Heparin drip was started as well as statins and beta-blockers. The patient was admitted to intensive care unit while awaiting transfer. EKG showed ST-segment depression in leads V5 to V6. The patient was eventually transferred to [facility]. FINAL DIAGNOSES: 1. Acute non-ST elevated myocardial infarction. 2. Acute respiratory failure with hypoxia. 3. Coronary artery disease. 4. Hypertension. 5. Hyperlipidemia. 6. Chronic kidney disease. 7. Diabetes mellitus type 2. Arelis Ceballos M.D. I have been assigned to dictate discharge summary on this account and I was not involved in the patient's management. Kady Rm N.P. DR: GERONIMO JOB#: [id number] CC:
--- NOTE | 2016-06-14 14:21 | Cardiology Report ---
APPROVED REPORT EKG Measurement Heart [id number] Normal sinus rhythm Possible Left atrial enlargement Left ventricular hypertrophy with repolarization abnormality Cannot rule out Inferior infarct, age undetermined Abnormal ECG
== END 2016-05-26 13:05 | disposition short-term general hospital (02) | DRG 280 ==
LOC: EDBD 17:40 → EMR 18:33 → ICU 18:48 → EDBEDREQ 20:00
DX: I21.4 Non-ST elevation (NSTEMI) myocardial infarction (principal); J96.01 Acute respiratory failure with hypoxia; E11.9 Type 2 diabetes mellitus without complications; I25.10 Atherosclerotic heart disease of native coronary artery without angina pectoris; E78.5 Hyperlipidemia, unspecified; I12.9 Hypertensive chronic kidney disease with stage 1 through stage 4 chronic kidney disease, or unspecified chronic kidney disease; N18.9 Chronic kidney disease, unspecified; Z87.891 Personal history of nicotine dependence
CPT/HCPCS: 36415; 71010; 80053; 80061; 81001; 82436; 82550; 82553; 83735; 84100; 84133; 84300; 84443; 84484; 84550; 85025; 85610; 85730; 86140; 87081; 89050; 93005; 93306; 94640; 94664; 94760; J7620